=== PATIENT | male | born 1990 | race Caucasian/White ===

== ENCOUNTER 2017-12-16 10:58 | Outpatient (CLI) | payer MEDICAID, SELFPAY | END 2017-12-16 11:18 | PROVIDERS: PCP Family Medicine; Visit Provider Neuromusculoskeletal Medicine, Sports Medicine | DX: R07.89 Other chest pain (principal) | CPT/HCPCS: 93005; 93010 ==

== ENCOUNTER 2018-07-26 17:01 | Outpatient (REF) | payer MEDICAID, SELFPAY ==
[2018-07-26 21:08] LABS: Abs Immature Grans 0.04 k/cumm (0.0-0.09); Absolute Basophil Count 0.04 k/cumm (0.0-0.2); Absolute Eosinophil Count 0.19 k/cumm (0.0-0.7); Absolute Lymphocyte Count 3.26 k/cumm (1.2-3.4); Absolute Monocyte Count 0.97 k/cumm (0.11-0.7); Absolute Neutrophil Count 5.87 k/cumm (1.2-6.7); Basophils % 0.4; Eosinophils % 1.8; HCT 45.1 % (40.0-50.0); HGB 15.4 g/dL (13.5-17.5); Immature Grans % 0.4; Lymphocytes % 31.4; Mean Corp. HGB Concentration 34.1 g/dL (32.0-36.0); Mean Corpuscular Hemoglobin 29.2 pg (27.0-33.0); Mean Corpuscular Volume 85.4 fL (80-95); Mean Platelet Volume 10.2 fL (8.0-11.0); Monocytes % 9.4; Neutrophils % 56.6; Platelet Count 261 x1000/uL (130-400); RBC 5.28 m/cumm (4.50-6.00); RBC Distribution Width 12.3 % (11.8-14.1); White Blood Cell Count 10.37 k/cumm (4.4-10.8)
[2018-07-26 21:43] LABS: ALT 50 U/L (12-78); AST 18 U/L (15-37); Albumin 2.9 g/dL (3.4-5.0); Alkaline Phosphatase 64 U/L (46-116); Anion Gap 9.9 mmol/L (3-11); BUN 10 mg/dL (7-18); Bilirubin, Total 0.3 mg/dL (0.2-1.0); CO2 27.1 mmol/L (21.0-32.0); CREATININE 0.94 mg/dL (0.70-1.30); Calcium 8.9 mg/dL (8.5-10.1); Chloride 103 mmol/L (98-107); Glucose 104 mg/dL (70-100); Potassium 4.3 mmol/L (3.5-5.1); Sodium 140 mmol/L (136-145); TSH 1.38 uIU/mL (0.358-3.74)
[2018-07-26 21:45] LABS: Hemoglobin A1C 5.6 % (4.5-6.2)
[2018-07-26 21:57] LABS: HDL Cholesterol 19 mg/dL (40-60); LDL CHOLESTEROL 105 mg/dL (<100)
== END 2018-07-26 17:21 ==
LOC: NCHCN 17:01
PROVIDERS: PCP Family Medicine; Visit Provider Nurse Practitioner Family
DX: R55 Syncope and collapse (principal)
CPT/HCPCS: 80053; 83721; 83036; 83718; 84443; 85025

== ENCOUNTER 2019-03-01 14:40 | Emergency (ER) | payer OTHER, SELFPAY ==
[2019-03-01 14:44] VITALS: BP 173/111; PULSE 102; RESP 16; TEMP 36.2; O2SAT 97
--- NOTE | 2019-03-01 14:54 | ED.GENADUL_ITS ---
Discharge Plan Disposition Patient Disposition: HOME Condition: Stable Discharge Details Chief Complaint: EyeProblem Clinical Impression: Abrasion, corneal Primary Care Provider: Katarzyna Head V ED Provider: Patrick Espinosa Home Meds and New Rx's Prescriptions: New erythromycin 5 mg/gram (0.5 %) ointment 0.5 inch OP TID 7 Days Qty: 3.5 RF: 0 Continued ibuprofen 600 MG tablet 600 mg PO TID PRN PRNQty: 30 RF: 0 Discharge Instructions Instructions: Corneal Abrasion (ED) Additional Instructions: if you aren't better by Wednesday follow up with [facility] [phone] if you are having severe worsening pain or fevers return to the emergency department Medical Decision Making 29 yo male comes in with chief complaint of left eye pain. 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 He flushed it out with saline at work. Denies fevers, chills, or other trauma. He has injected left conjunctiva, perrl, no periorbital swelling, iop 10 in right eye, 12 in left eye and 20/25 in left eye and 20/20 in right eye. Had immediate relief of pain with tetracaine. no foreign body on surface of eye, did have small 1mm piece of fiberglass when upper left eyelid flipped and removed with cotton swab. After flourescein placement noted 2 small 1mm corneal abrasions on the conjunctiva at the 3oclock and 9 oclock positions. will start on erythromycin and advised if not better by Wednesday to f/u with [facility] and return to the ED if worsening Differential Diagnosis Differential Diagnosis: corneal abrasion, conjunctivitis HPI General Mode of arrival: ambulatory . Date/Time Provider Initiated Documentation: 03/01/19 14:42 . Limitations to Documentation: no limitations . Information obtained by: patient . History of Present Illness 29 year old M presents to the emergency department with the chief complaint of left eye pain, described as moderate, Patient started experiencing this hour(s) (1) and it has been constant. No relieving factors improve symptom(s), No exacerbating factors reported . Related Data Home Medications Medication Instructions Recorded Confirmed ibuprofen 600 mg PO TID PRN PRN #30 tab 07/23/17 11/27/19 erythromycin 0.5 inch OP TID 7 Days #3.5 gm 03/01/19 Previous Rx's Medication Instructions Recorded ibuprofen 600 mg PO TID PRN PRN #30 tab 10/25/16 erythromycin 0.5 inch OP TID 7 Days #3.5 gm 03/01/19 Allergies Allergy/AdvReac Type Severity Reaction Status Date / Time No Known Allergies Allergy Unverified 03/01/19 14:51 General Stated Complaint: EyeProblem CLIF: 4 Review of Systems All systems reviewed & are unremarkable except as noted in HPI and below Constitutional Constitutional: Denies chills, Denies fever(s) and Denies weakness Cardiovascular Cardiovascular: Denies chest pain and Denies dyspnea Respiratory Respiratory: Denies dyspnea Gastrointestinal Gastrointestinal: Denies abdominal pain, Denies nausea and Denies vomiting Musculoskeletal Musculoskeletal: Denies joint swelling Neurologic Neurologic: Denies weakness Psychiatric Psychiatric: Denies depression [facility] Medical History (Updated 03/27/18 @ 15:24 by Laura Cody MD) Cardiac hypertrophy (Chronic) Essential hypertension (Chronic) Migraines (Chronic) Severe obesity (BMI 35.0-39.9) with comorbidity (Chronic) Social History Smoking/Tobacco Use Status: Current every day Tobacco Type: cigarettes Drug use: Occasionally Substance use type: marijuana Household members: significant other Do you feel safe at home: Yes Do you feel safe in your relationship?: Yes Exam Const General: no acute distress Orientation: alert HENMT Head: normal to inspection Ears: external ears normal General nose exam: external nose normal Mouth: moist mucous membranes Eyes Alignment and Position: alignment normal Pupils: PERRL Neck Neck: normal visual inspection Resp Effort & Inspection: normal respiratory effort and able to speak in complete sentences Cardio Rate: regular rate Skin General skin exam: no rashes or lesions noted Neuro General: alert and oriented x3 Extrem General: normal to inspection Psych Mental Status: mental status grossly normal Course Vital Signs Vital signs: Vital Signs Temperature 36.2 C L 03/01/19 14:44 Pulse 102 H 03/01/19 14:44 Respiratory Rate 16 03/01/19 14:44 Blood Pressure 173/111 H 03/01/19 14:44 Pulse Oximetry 97 03/01/19 14:44 Temperature 36.2 C L 03/01/19 14:44 Temperature Source Temporal Artery Scan 03/01/19 14:44 Pulse 102 H 03/01/19 14:44 Respiratory Rate 16 03/01/19 14:44 Respiratory Effort Non-Labored 03/01/19 14:49 Blood Pressure 173/111 H 03/01/19 14:44 Blood Pressure Position Sitting 03/01/19 14:44 Pulse Oximetry 97 03/01/19 14:44 Oxygen Delivery Method Room Air 03/01/19 14:44 Oxygen Flow Rate 0 03/01/19 14:44 Pain Level 2 03/01/19 14:44
[2019-03-01] MEDS: Balanced Salt Solution 15 ML BTL OP (14:57)
[2019-03-01] MEDS: Fluorescein STRIPS 100/BOX 1 MG (14:58)
[2019-03-01] MEDS: Tetracaine 0.5% 4 ML BTL (14:58)
[2019-03-01 17:49] VITALS: PULSE 102; RESP 16; TEMP 36.2; O2SAT 97
== END 2019-03-01 15:23 | disposition home or self-care (01) ==
PROVIDERS: Emergency Provider Emergency Medicine; PCP Family Medicine
DX: S05.02XA Injury of conjunctiva and corneal abrasion without foreign body, left eye, initial encounter (principal); X58.XXXA Exposure to other specified factors, initial encounter
CPT/HCPCS: 99283

== ENCOUNTER 2019-04-17 10:01 | Emergency (ER) | payer MEDICAID, SELFPAY ==
[2019-04-17] VITALS (45 sets, daily range): BP systolic 143–205; BP diastolic 77–137; PULSE 62–117; RESP 11–34; TEMP 36.2; O2SAT 89–98
[2019-04-17] MEDS: Aspirin 81 MG CHEW 324 MG CH (10:18)
[2019-04-17] MEDS: LORazepam 2 MG/ML VIAL (10:24)
--- NOTE | 2019-04-17 10:24 | ED.GENADUL_ITS ---
Discharge Plan Disposition Patient Disposition: AGAINST MEDICAL ADVICE Condition: Stable Discharge Details Chief Complaint: Chest Pain Clinical Impression: Chest pain, Hypertension Primary Care Provider: Katarzyna Head V ED Provider: Helene Kimble Home Meds and New Rx's Prescriptions: Continued famotidine [Pepcid] 20 mg Tablet 20 mg PO BID RF: 0 hydrochlorothiazide 25 mg Tablet 25 mg PO DAILY RF: 0 ibuprofen 600 MG tablet 600 mg PO TID PRN PRNQty: 30 RF: 0 Discharge Instructions Instructions: Chest Pain (ED), Hypertension (ED) Additional Instructions: You have elected to leave AGAINST MEDICAL ADVICE, the risks of doing so are or permanent disability. You may return to the emergency department anytime if you change your mind. Please return immediately to the emergency department if you develop any new or worsening symptoms, if your condition does not improve as expected, or if you become otherwise concerned. It is extremely important that you call soon as possible to make an appointment to be seen in follow-up for this visit by your primary care doctor and product coordinator as we discussed. 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 On exam Pt appears anxious but well and non-toxic, no diaphoresis, normal cardiopulmonary exam. Hypertensive. Concern for ACS, PE, hypertensive emergency, other. Exam/hx not c/w sepsis, acute intra-abdominal process, acute intracranial emergency. Plan for EKG, screening labs, CT chest for r/o PE, SLNG, low dose ativan. Pt reports chest tightness improved with SLNG, plan for NG gtt. BP improving, will hold other anti-hypertensives. EKG non-diagnostic. Pt denying continued chest pain, reporting headache after NG gtt started, plan to stop gtt, give morphine, reassess. No further chest pain after NG stopped, headache resolved. Labs reviewed, trop negative. CT negative. Plan for repeat trop and EKG, will continue to monitor. Repeat trop negative. No further chest pain in ED. Rpt EKG unchanged. Pt is high risk given history, HTN in ED. I recommended Pt be admitted for further eval and treatment. Pt refuses or further treatment at this time. I had a lengthy discussion with the Pt and his family re: risks of leaving AMA including , permanent disability, and Pt verbalized understanding of the risks and continued to refuse further eval or treatment. Pt has decision-making capacity, has capacity for informed refusal. I discussed plan for outpt f/u with cardiology and PCP, and also that Pt may RTED at any time should he change his mind. I called Dr. Delaney of cardiology and discussed Pt presentation, results, and refusal to be admitted, Dr. Delaney will see Pt as outpt. I had a lengthy discussion with Patient regarding return to emergency department precautions, home care, and importance of outpatient follow-up. Pt verbalizes understanding of the plan and is amenable. Patient discharged to home with clear plan for outpatient follow-up. All questions were answered. Disposition decision was made weighing the risks and benefits of hospitalization versus outpatient treatment, the risk for further decompensation, and the patient's wishes. Medical Records Medical records reviewed: Yes I reviewed the patient's medical records. Imaging Data Radiologic Study: Attestation: I personally reviewed and interpreted this imaging study as follows: Radiologist's impression: EXAM: CT CHEST PE CTA CLINICAL HISTORY: chest pain. TECHNIQUE: Imaging Protocol: Axial CT angiography was performed with multi- slice acquisition and multi-planar and/or 3D reconstructions. CONTRAST MATERIAL: Intravenous: Omnipaque 350 Contrast volume:90 mL COMPARISON: No exams were available for comparison FINDINGS: Pulmonary Arteries: No evidence of filling defect to suggest pulmonary emboli. Tracheobronchial tree: Patent where visualized. Mediastinum and Deb: No dominant adenopathy or fluid collection. Pulmonary parenchyma: No consolidation or dominant measurable mass. No architectural distortion. Pleura: No effusion or pneumothorax. Heart: The heart is not dilated. No coronary artery calcifications are seen. No significant pericardial effusion or right heart strain is present. Aorta: No evidence of thoracic aortic aneurysm or dissection. Upper abdomen: Unremarkable. Bones: Normal. Chest wall: Gynecomastia. IMPRESSION: No evidence of pulmonary embolus, thoracic aortic dissection or aneurysm. Lab Data Lab results reviewed: Yes I reviewed the patient's lab results. Labs: Laboratory Tests Range/Units 04/17/19 04/17/19 04/17/19 10:10 10:10 10:10 WBC (4.4-10.8) k/cumm 11.58 H RBC (4.50-6.00) m/cumm 5.70 Hgb (13.5-17.5) g/dL 16.7 Hct (40.0-50.0) % 47.0 MCV (80-95) fL 82.5 MCH (27.0-33.0) pg 29.3 MCHC (32.0-36.0) g/dL 35.5 RDW (11.8-14.1) % 12.2 Plt Count (130-400) x1000/uL 316 MPV (8.0-11.0) fL 9.7 Immature Gran % % 0.3 Neutrophils % 59.3 Lymphocytes % 30.2 Monocytes % 7.3 Eosinophils % 2.5 Basophils % 0.4 Absolute Neutrophils (1.2-6.7) k/cumm 6.87 H Absolute Lymphocytes (1.2-3.4) k/cumm 3.50 H Absolute Monocytes (0.11-0.7) k/cumm 0.85 H Absolute Eosinophils (0.0-0.7) k/cumm 0.29 Absolute Basophils (0.0-0.2) k/cumm 0.05 D-Dimer (<500) ng/mlFEU 168 Sodium (136-145) mmol/L 141 Potassium (3.5-5.1) mmol/L 4.0 Chloride (98-107) mmol/L 103 Carbon Dioxide (21.0-32.0) mmol/L 27.4 Anion Gap (3-11) mmol/L 10.6 BUN (7-18) mg/dL 14 Creatinine (0.70-1.30) mg/dL 0.99 Estimated GFR/1.73 m2 (mL/min/1.73m2) >= 60.00 Glucose (74-106) mg/dL 102 Calcium (8.5-10.1) mg/dL 9.4 Magnesium (1.8-2.4) mg/dL 1.7 L Total Bilirubin (0.2-1.0) mg/dL 0.3 AST (15-37) U/L 20 ALT (16-63) U/L 41 Alkaline Phosphatase (46-116) U/L 64 Troponin I (<0.06) ng/Ml < 0.05 NT-Pro-B Natriuret Pep (<300) pg/mL 21 Total Protein (6.4-8.2) g/dL 7.8 Albumin (3.4-5.0) g/dL 3.8 Range/Units 04/17/19 13:20 WBC (4.4-10.8) k/cumm RBC (4.50-6.00) m/cumm Hgb (13.5-17.5) g/dL Hct (40.0-50.0) % MCV (80-95) fL MCH (27.0-33.0) pg MCHC (32.0-36.0) g/dL RDW (11.8-14.1) % Plt Count (130-400) x1000/uL MPV (8.0-11.0) fL Immature Gran % % Neutrophils % Lymphocytes % Monocytes % Eosinophils % Basophils % Absolute Neutrophils (1.2-6.7) k/cumm Absolute Lymphocytes (1.2-3.4) k/cumm Absolute Monocytes (0.11-0.7) k/cumm Absolute Eosinophils (0.0-0.7) k/cumm Absolute Basophils (0.0-0.2) k/cumm D-Dimer (<500) ng/mlFEU Sodium (136-145) mmol/L Potassium (3.5-5.1) mmol/L Chloride (98-107) mmol/L Carbon Dioxide (21.0-32.0) mmol/L Anion Gap (3-11) mmol/L BUN (7-18) mg/dL Creatinine (0.70-1.30) mg/dL Estimated GFR/1.73 m2 (mL/min/1.73m2) Glucose (74-106) mg/dL Calcium (8.5-10.1) mg/dL Magnesium (1.8-2.4) mg/dL Total Bilirubin (0.2-1.0) mg/dL AST (15-37) U/L ALT (16-63) U/L Alkaline Phosphatase (46-116) U/L Troponin I (<0.06) ng/Ml < 0.05 NT-Pro-B Natriuret Pep (<300) pg/mL Total Protein (6.4-8.2) g/dL Albumin (3.4-5.0) g/dL ECG Data Attestation: I personally reviewed and interpreted this ECG (s) as follows: Interpretation: EKG shows sinus rhythm at 95, normal axis, no STEMI, nondiagnostic EKG Repeat EKG 14: 05 shows sinus rhythm at 75, normal axis, no ischemic ST changes from prior, nondiagnostic EKG HPI General Mode of arrival: ambulatory . Date/Time Provider Initiated Documentation: 04/17/19 10:03 . Limitations to Documentation: no limitations . Information obtained by: patient and family . HPI Narrative: Jayme James is a 29 y/o man with h/o HTN, cardiomyopathy presenting to the emergency department with chest pain. Pt reports that he was at work this morning when he developed chest pain. 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 He states that he developed tightness across his chest, non-radiating, in addition to SOB and feeling sweaty. Pt reports that he had a similar episode about a year for which he was seen in the ED at [facility] and discharged to home from the ED after being told he was having a panic attack. Pt reports that he has a history of cardiomyopathy, along with his sister who he reports suddenly of her cardiac disease in her late 20s. Pt reports that he has never had a cardiac catheterization, is unsure if he has had a stress test before. He reports that he has seen a product coordinator in the past, but he was told that his problem was from being overweight and he didn't to see the product coordinator anymore unless he lost weight. Pt reports that his chest tightness is unchanged from onset. Non-exertional, non-pleuritic, no other known inciting factors. Currently 11/12. No other pain, no fevers, no cough, no vomiting, no diarrhea, no numbness, no weakness, no rash. Pt reports that prior to onset of pain he was well and in his usual state of health this morning. Has been eating and drinking as usual. No recent illness, no recent tr eric. Denies recreational drug use. Pt states that he wants to be evaluated and treated in the ED, but he will refuse admission to the hospital as he wants to stay in his own home tonight and does not like hospitals. Related Data Home Medications Medication Instructions Recorded Confirmed ibuprofen 600 mg PO TID PRN PRN #30 tab 10/25/16 04/17/19 famotidine [Pepcid] 20 mg PO BID 04/17/19 04/17/19 hydrochlorothiazide 25 mg PO DAILY 04/17/19 04/17/19 Previous Rx's Medication Instructions Recorded ibuprofen 600 mg PO TID PRN PRN #30 tab 10/25/16 Allergies Allergy/AdvReac Type Severity Reaction Status Date / Time amlodipine Allergy Unverified 04/17/19 13:30 amoxicillin Allergy Unverified 04/17/19 13:30 General Stated Complaint: Chest Pain CLIF: 2 Review of Systems Narrative: Constitutional: denies fevers Eyes: denies eye pain ENT: denies ear pain, dental pain, sore throat Cardiovascular: denies edema, reports chest pain Respiratory: denies cough, reports SOB GI: denies abdominal pain, vomiting, diarrhea : denies flank pain MSK: denies back pain, neck pain, arthralgias, myalgias Skin: denies rash Neuro: denies headaches, numbness, weakness PFSH Medical History Cardiac hypertrophy (Chronic) Essential hypertension (Chronic) Migraines (Chronic) Severe obesity (BMI 35.0-39.9) with comorbidity (Chronic) Social History Smoking/Tobacco Use Status: Current every day Tobacco Type: cigarettes and smokeless tobacco Alcohol Intake: never Drug use: Occasionally Substance use type: marijuana Household members: significant other Do you feel safe at home: Yes Do you feel safe in your relationship?: Yes Exam Narrative Exam Narrative: Constitutional: well and [id number], pleasant, conversing normally, appears anxious HENT: head atraumatic/normocephalic/normal inspection, mucous membranes moist Eyes: conjunctiva normal, sclera normal, pupils 3mm b/l Neck: no stridor, normal ROM, trachea midline Chest: normal inspection, no TTP Resp: normal work of breathing, LCTAB Cardio: normal rate, normal rhythm, no murmur appreciated GI: abdomen soft, non-tender, non-distended Back: normal inspection, no rash Skin: warm, dry, normal color, no rash Neuro: alert, not altered, grossly non-focal, normal tone Ext: no edema, no posterior calf TTP Psych: normal mood, normal affect, normal behavior Course Vital Signs Vital signs: Vital Signs Temperature 36.2 C L 04/17/19 10:05 Pulse 92 H 04/17/19 10:05 Respiratory Rate 14 04/17/19 10:05 Blood Pressure 205/136 H 04/17/19 10:05 Pulse Oximetry 95 04/17/19 10:05 Temperature 36.2 C L 04/17/19 10:05 Temperature Source Temporal Artery Scan 04/17/19 10:05 Pulse 92 H 04/17/19 10:05 Respiratory Rate 14 04/17/19 10:05 Respiratory Effort Non-Labored 04/17/19 10:08 Blood Pressure 205/136 H 04/17/19 10:05 Blood Pressure Position Supine 04/17/19 10:05 Pulse Oximetry 95 04/17/19 10:05 Oxygen Delivery Method Room Air 04/17/19 10:05 Oxygen Flow Rate 0 04/17/19 10:05 Pain Level 8 04/17/19 10:14
[2019-04-17 10:26] LABS: Abs Immature Grans 0.03 k/cumm (0.0-0.09); Absolute Basophil Count 0.05 k/cumm (0.0-0.2); Absolute Eosinophil Count 0.29 k/cumm (0.0-0.7); Absolute Monocyte Count 0.85 k/cumm (0.11-0.7); Absolute Neutrophil Count 6.87 k/cumm (1.2-6.7); Basophils % 0.4; Eosinophils % 2.5; HGB 16.7 g/dL (13.5-17.5); Immature Grans % 0.3 %; Lymphocytes % 30.2; Mean Corp. HGB Concentration 35.5 g/dL (32.0-36.0); Mean Corpuscular Hemoglobin 29.3 pg (27.0-33.0); Mean Corpuscular Volume 82.5 fL (80-95); Mean Platelet Volume 9.7 fL (8.0-11.0); Monocytes % 7.3; Neutrophils % 59.3; Platelet Count 316 x1000/uL (130-400); RBC Distribution Width 12.2 % (11.8-14.1); White Blood Cell Count 11.58 k/cumm (4.4-10.8)
[2019-04-17 10:45] LABS: ALT 41 U/L (16-63); AST 20 U/L (15-37); Albumin 3.8 g/dL (3.4-5.0); Alkaline Phosphatase 64 U/L (46-116); Anion Gap 10.6 mmol/L (3-11); BUN 14 mg/dL (7-18); Bilirubin, Total 0.3 mg/dL (0.2-1.0); CO2 27.4 mmol/L (21.0-32.0); CREATININE 0.99 mg/dL (0.70-1.30); Calcium 9.4 mg/dL (8.5-10.1); Chloride 103 mmol/L (98-107); Glucose 102 mg/dL (74-106); Magnesium 1.7 mg/dL (1.8-2.4); NT-proBNP 21 pg/mL (<300); Sodium 141 mmol/L (136-145); Total Protein 7.8 g/dL (6.4-8.2)
[2019-04-17 10:49] LABS: Troponin I < 0.05 ng/Ml (<0.06)
--- NOTE | 2019-04-17 10:49 | DI.CT_ITS ---
EXAM: CT CHEST PE CTA CLINICAL HISTORY: chest pain. TECHNIQUE: Imaging Protocol: Axial CT angiography was performed with multi-slice acquisition and mu lti-planar and/or 3D reconstructions. CONTRAST MATERIAL: Intravenous: Omnipaque 350 Contrast volume:90 mL COMPARISON: No exams were available for comparison FINDINGS: Pulmonary Arteries: No evidence of filling defect to suggest pulmonary emboli. Tracheobronchial tree: Patent where visualized. Mediastinum and Deb: No dominant adenopathy or fluid collection. Pulmonary parenchyma: No consolidation or dominant measurable mass. No architectural distortion. Pleura: No effusion or pneumothorax. Heart: The heart is not dilated. No coronary artery calcifications are seen. No significant pericardi al effusion or right heart strain is present. Aorta: No evidence of thoracic aortic aneurysm or dissection. Upper abdomen: Unremarkable. Bones: Normal. Chest wall: Gynecomastia. IMPRESSION: No evidence of pulmonary embolus, thoracic aortic dissection or aneurysm. The findings were discussed with the emergency department on the date of the examination. DATA REPOSITORY: All CT scans at this facility are submitted to the National Radiology Data Registry (NRDR) Dose Index Registry (DIR) with the [employer] (A[employer]). RADIATION OPTIMIZATION: All CT scans at this facility use at least one of these dose optimization te chniques: automated exposure control; mA and/or kV adjustment per patient size (includes targeted exa ms where dose is matched to clinical indication); or iterative reconstruction.
[2019-04-17 10:58] LABS: D-Dimer 168 ng/mlFEU (<500)
[2019-04-17] MEDS: Omnipaque 350 MG/ML 100 ML BTL IJ (11:12)
[2019-04-17 13:45] LABS: Troponin I < 0.05 ng/Ml (<0.06)
[2019-04-17] MEDS: Acetaminophen 500 MG TAB (14:45)
--- NOTE | 2019-04-17 17:55 | NUR.NOTE ---
referral faxed to [facility].Nursing Note:
== END 2019-04-17 15:47 | disposition left against medical advice (07) ==
PROVIDERS: Emergency Provider Student in an Organized Health Care Education/Training Program; PCP Family Medicine
DX: R07.89 Other chest pain (principal); I10 Essential (primary) hypertension; I42.9 Cardiomyopathy, unspecified; Z53.29 Procedure and treatment not carried out because of patient's decision for other reasons; F17.210 Nicotine dependence, cigarettes, uncomplicated
CPT/HCPCS: 36415; 71275; 80053; 93005; 96375; 99285; 83735; 83880; 84484; 85025; 85379; 93010; J2060; J3490

== ENCOUNTER 2019-05-25 08:50 | Outpatient (CLI) | payer MEDICAID, SELFPAY | END 2019-05-25 09:10 | PROVIDERS: PCP Family Medicine; Visit Provider Internal Medicine Cardiovascular Disease | DX: I10 Essential (primary) hypertension (principal); I38 Endocarditis, valve unspecified | CPT/HCPCS: 93005; 93010 ==

== ENCOUNTER 2020-02-20 10:24 | Outpatient (REF) | payer MEDICAID, SELFPAY ==
[2020-02-24 03:17] LABS: Patient Race White; SARS-CoV-2 RNA Undetected (Undetected); SARS-CoV-2 Specimen Source Nasal
== END 2020-02-20 10:44 ==
LOC: NCHCN 10:24
PROVIDERS: PCP Family Medicine; Visit Provider Family Medicine
DX: Z20.828 Contact with and (suspected) exposure to other viral communicable diseases (principal)
CPT/HCPCS: U0003

== ENCOUNTER 2020-11-21 17:03 | Outpatient (REF) | payer MEDICAID, SELFPAY ==
[2020-11-21 19:14] LABS: Abs Immature Grans 0.04 10^3/uL (0.0-0.06); Absolute Basophil Count 0.06 10^3/uL (0.0-0.2); Absolute Eosinophil Count 0.22 10^3/uL (0.0-0.7); Absolute Lymphocyte Count 4.31 10^3/uL (1.2-3.4); Absolute Monocyte Count 0.69 10^3/uL (0.1-0.8); Absolute Neutrophil Count 5.43 10^3/uL (1.2-6.7); Basophils % 0.6; HCT 40.6 % (40.0-50.0); HGB 13.5 g/dL (13.5-17.5); Immature Grans % 0.4; Lymphocytes % 40.1; MCH 29.4 pg (27.0-33.0); MCHC 33.3 % (32.0-36.0); MCV 88.5 fL (80-95); MPV 10.1 fL (8.0-11.0); Monocytes % 6.4; Neutrophils % 50.5; Nucleated RBC 0 %; Platelet Count 284 10^3/uL (130-400); RBC 4.59 10^6/uL (4.36-5.78); WBC 10.75 10^3/uL (4.4-10.8)
[2020-11-21 19:32] LABS: Anion Gap 5.7 mmol/L (3-11); BUN 18 mg/dL (7-18); CO2 32.3 mmol/L (21.0-32.0); CREATININE 1.1 mg/dL (0.70-1.30); Calcium 9.3 mg/dL (8.5-10.1); Chloride 105 mmol/L (98-107); Glucose 70 mg/dL (74-106); Potassium 4.4 mmol/L (3.5-5.1); Sodium 143 mmol/L (136-145)
== END 2020-11-21 17:04 | disposition home or self-care (01) ==
LOC: NCHCN 17:03
PROVIDERS: PCP Family Medicine; Visit Provider Nurse Practitioner Family
DX: R19.7 Diarrhea, unspecified (principal)
CPT/HCPCS: 80048; 85025

== ENCOUNTER 2021-01-08 15:13 | Outpatient (REF) | payer MEDICAID, SELFPAY ==
[2021-01-10 12:09] LABS: COVID-19 RT-PCR UVMMC Result Negative (Negative)
== END 2021-01-08 15:14 | disposition home or self-care (01) ==
LOC: LBN 15:13
PROVIDERS: PCP Family Medicine; Visit Provider Physician Assistant Medical
DX: Z20.822 Contact with and (suspected) exposure to COVID-19 (principal)
CPT/HCPCS: U0003

== ENCOUNTER 2021-02-17 18:45 | Emergency (ER) | payer MEDICAID, SELFPAY ==
[2021-02-17 18:54] VITALS: BP 167/94; PULSE 71; RESP 18; TEMP 36.6; O2SAT 97
--- NOTE | 2021-02-17 19:02 | ED.GENADUL_ITS ---
Discharge Plan Disposition Patient Disposition: HOME Condition: Stable Discharge Details Clinical Impression: Tooth ache Primary Care Provider: Katarzyna Head V ED Provider: Pearl Enriquez Home Meds and New Rx's Prescriptions: No Action losartan 50 mg tablet 50 mg PO DAILY RF: 0 diclofenac sodium 75 mg tablet,delayed release (DR/EC) 75 mg PO BID PRNRF: 0 cyclobenzaprine 10 mg tablet 10 mg PO TID PRNRF: 0 diltiazem HCl [Taztia XT] 120 mg capsule,extended release 24 hr 120 mg PO DAILY Qty: 90 RF: 8 famotidine [Pepcid] 20 mg Tablet 20 mg PO BID RF: 0 hydrochlorothiazide 25 mg Tablet 25 mg PO DAILY RF: 0 ibuprofen 600 MG tablet 600 mg PO TID PRN PRNQty: 30 RF: 0 Discharge Instructions Instructions: Clindamycin (By mouth), Toothache (ED) Additional Instructions: Take the medication as directed. You were given 450 mg by mouth here in Department and 4 doses to go home with. Take another dose before your dentist appointment in the am. Take with food. Use the Hurricaine gel for pain. Please take Tylenol or Ibuprofen with food every 4-6 hours as needed for pain and swelling. Referrals: Katarzyna Head MD [Primary Care Provider] - Return if symptoms worsen Medical Decision Making 31-year-old male presents to the ER with history of right lower dental pain. He is scheduled for extraction tomorrow morning. He is requesting a dose of IV antibiotics prior appointment. After further review to give clindamycin orally 450 mg p.o. here now and instruct patient to take another dose in the a.m. prior to his appointment. According to my sources IV clindamycin should be given 30-60 min prior to procedure if needed. Due to the bioavailability will give the oral dose instead of the IV dose. I did discuss with patient who verbalized understanding is in agreement with plan. Patient given 450 mg PO Clindamycin her and to go dose of 12 tablets. This text was generated using [employer] system, please disregard any oddities of phrase or misspellings. HPI General Mode of arrival: ambulatory . Date/Time Provider Initiated Documentation: 02/17/21 19:01 . Limitations to Documentation: no limitations . Information obtained by: patient, RN notes reviewed and old records reviewed . HPI Narrative: 31-year-old male presents to the ER with chief complaint of right lower molar dental pain. He reports he has been on clindamycin for the last 10 days and took his last dose on Wednesday. He reports that he had increased tooth pain today. He does have an appointment for a tooth extraction tomorrow at the orthopedic dentist office. He was instructed to present for a dose of IV antibiotic prior to his appointment tomorrow. He has been taking Tylenol and ibuprofen for pain last dose was gram of Tylenol and a gram of Profen approximately 1 hour prior to arrival. He also reports continued treatment of Orajel. He denied any other associated symptoms no drainage, no problems swallowing, no fever chill trouble breathing. On initial exam there is no evidence for abscess no fluctuance. Does have a broken second molar noted. Related Data Home Medications Medication Instructions Recorded Confirmed ibuprofen 600 mg PO TID PRN PRN #30 tab 10/25/16 02/17/21 famotidine [Pepcid] 20 mg PO BID 04/17/19 02/17/21 hydrochlorothiazide 25 mg PO DAILY 04/17/19 02/17/21 losartan 50 mg tablet 50 mg PO DAILY 05/25/19 02/17/21 cyclobenzaprine 10 mg tablet 10 mg PO TID PRN 06/13/19 02/17/21 diclofenac sodium 75 mg 75 mg PO BID PRN 06/13/19 02/17/21 tablet,delayed release diltiazem HCl 120 mg capsule,24 120 mg PO DAILY #90 cap 08/07/19 02/17/21 hr,extended release Previous Rx's Medication Instructions Recorded ibuprofen 600 mg PO TID PRN PRN #30 tab 10/25/16 diltiazem HCl 120 mg capsule,24 120 mg PO DAILY #90 cap 08/07/19 hr,extended release Allergies Allergy/AdvReac Type Severity Reaction Status Date / Time amlodipine Allergy Unverified 02/17/21 19:01 amoxicillin Allergy Unverified 02/17/21 19:01 General Stated Complaint: DentalOral CLIF: 3 Review of Systems All systems reviewed & are unremarkable except as noted in HPI and below ENT Ears, Nose, Mouth, and Throat: Reports as per HPI, Reports dental pain, Denies otalgia, Denies neck mass and Denies neck pain Musculoskeletal Musculoskeletal: Denies neck pain PFS Active Problem List (Updated 02/17/21 @ 19:21 by Pearl Enriquez) Tooth ache (Acute) LVH (left ventricular hypertrophy) (Acute) Cardiac hypertrophy (Chronic) Severe obesity (BMI 35.0-39.9) with comorbidity (Chronic) Migraines (Chronic) Essential hypertension (Chronic) Family History Sister , [place] vs. sudden cardiac at age 28 Sudden cardiac Maternal Grandmother , age 65 CAD (coronary artery disease) Maternal Grandfather CAD (coronary artery disease) Paternal Grandmother , age 64 Stroke Paternal Grandfather CAD (coronary artery disease) Stroke Mother Age: 52 No problems noted. Father Age: 55 No problems noted. Social History Smoking/Tobacco Use Status: Former Tobacco Use Smoking risk assessment performed?: Yes Alcohol Intake: never Drug use: Daily Substance use type: marijuana Household members: significant other What type of physical activity do you participate in: none Do you feel safe at home: Yes Do you feel safe in your relationship?: Yes Exam Const General: cooperative, healthy appearing, comfortable, no acute distress, well developed and well groomed Nutritional Appearance: average body habitus and well nourished Orientation: alert, awake and oriented x3 HENMT Mouth: no trismus Teeth and gingiva: caries and fair dentition Teeth image: 1. Pain, broken tooth, no absces or area of fluctuance. Neck Neck: full ROM, trachea midline, supple, no anterior neck swelling, no lymphadenopathy noted and nontender Resp Effort & Inspection: normal respiratory effort, able to speak in complete sentences, normal respiratory pattern, no audible wheezes, no cough and not labored Auscultation: clear to auscultation bilaterally Cardio Rate: regular rate Rhythm: regular rhythm Heart Sounds: S1 normal and S2 normal Course Vital Signs Vital signs: Vital Signs Temperature 36.6 C 02/17/21 18:54 Pulse 71 02/17/21 18:54 Respiratory Rate 18 02/17/21 18:54 Blood Pressure 167/94 H 02/17/21 18:54 Pulse Oximetry 97 02/17/21 18:54 Temperature 36.6 C 02/17/21 18:54 Temperature Source Temporal Artery Scan 02/17/21 18:54 Pulse 71 02/17/21 18:54 Respiratory Rate 18 02/17/21 18:54 Blood Pressure 167/94 H 02/17/21 18:54 Blood Pressure Position Sitting 02/17/21 18:54 Pulse Oximetry 97 02/17/21 18:54 Oxygen Delivery Method Room Air 02/17/21 18:54 Oxygen Flow Rate 0 02/17/21 18:54 Pain Level 8 02/17/21 18:54
[2021-02-17] MEDS: Clindamycin 150 MG CAP 450 MG PO (19:30)
[2021-02-17] MEDS: Clindamycin 150 MG CAP, 12 CAPS/BTL 450 MG PO (19:31)
[2021-02-17] MEDS: Benzocaine 20% Gel 30 GM JAR MM (19:31)
== END 2021-02-17 19:42 | disposition home or self-care (01) ==
PROVIDERS: Emergency Provider Registered Nurse Emergency; PCP Family Medicine
DX: K08.89 Other specified disorders of teeth and supporting structures (principal)
CPT/HCPCS: 99283

== ENCOUNTER 2021-06-20 20:36 | Outpatient (CLI) | payer MEDICAID, SELFPAY ==
--- NOTE | 2021-06-20 | DI.RAD_ITS ---
Exam(s) XR LUMBAR SPINE COMPLETE EXAM: XR LUMBAR SPINE COMPLETE CLINICAL HISTORY: CHRONIC LOW BACK PAIN, M54.59 TECHNIQUE: COMPARISON: CR LUMBAR SPINE COMPLETE from 10/25/2016 FINDINGS: Five views were obtained. The SI joints appear intact. There is some loss of height of intervertebr al disc space at the L4-5 level, otherwise intervertebral disc spaces are well maintained. There is no evidence of acute fracture or dislocation. There is no evidence of spondylolysis or spondylolisth esis. 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 No other significant findings. RADIATION DOSE DELIVERED: Total DLP
== END 2021-06-20 20:56 ==
PROVIDERS: PCP Family Medicine; Visit Provider Nurse Practitioner Family
DX: M54.59 Other low back pain (principal); M51.36 Other intervertebral disc degeneration, lumbar region
CPT/HCPCS: 72110

== ENCOUNTER 2023-02-05 02:54 | Outpatient (CLI) | payer MEDICAID, SELFPAY ==
[2023-02-05 16:37] LABS: Abs Immature Grans 0.04 10^3/uL (0.0-0.06); Absolute Basophil Count 0.05 10^3/uL (0.0-0.2); Absolute Eosinophil Count 0.13 10^3/uL (0.0-0.7); Absolute Lymphocyte Count 3.58 10^3/uL (1.2-3.4); Absolute Monocyte Count 0.68 10^3/uL (0.1-0.8); Absolute Neutrophil Count 6.26 10^3/uL (1.2-6.7); Basophils % 0.5; Eosinophils % 1.2; HCT 45.7 % (40.0-50.0); HGB 15.5 g/dL (13.5-17.5); Immature Grans % 0.4; Lymphocytes % 33.3; MCH 28.8 pg (27.0-33.0); MCHC 33.9 % (32.0-36.0); MCV 85 fL (80-95); MPV 9.1 fL (8.0-11.0); Monocytes % 6.3; Neutrophils % 58.3; Platelet Count 273 10^3/uL (130-400); RBC 5.38 10^6/uL (4.36-5.78); RDW 12.1 % (11.8-14.1); WBC 10.74 10^3/uL (4.4-10.8)
[2023-02-05 17:04] LABS: ALT 47 U/L (16-63); AST 21 U/L (15-37); Albumin 3.9 g/dL (3.4-5.0); Alkaline Phosphatase 53 U/L (46-116); Anion Gap 7.3 mmol/L (3-11); BUN 17 mg/dL (7-18); Bilirubin, Total 0.4 mg/dL (0.2-1.0); CO2 29.7 mmol/L (21.0-32.0); CREATININE 1.1 mg/dL (0.70-1.30); Calcium 9.4 mg/dL (8.5-10.1); Chloride 101 mmol/L (98-107); Glucose 104 mg/dL (74-106); Potassium 3.6 mmol/L (3.5-5.1); Sodium 138 mmol/L (136-145); Total Protein 7.7 g/dL (6.4-8.2)
== END 2023-02-05 02:55 | disposition home or self-care (01) ==
PROVIDERS: PCP Family Medicine; Visit Provider Family Medicine
DX: I10 Essential (primary) hypertension (principal); Z00.00 Encounter for general adult medical examination without abnormal findings; F39 Unspecified mood [affective] disorder
CPT/HCPCS: 36415; 80053; 85025

== ENCOUNTER 2024-03-28 07:59 | Outpatient (CLI) | payer MEDICAID, SELFPAY ==
--- NOTE | 2024-03-28 11:30 | RT.EKG_ITS ---
APPROVED REPORT Exam: Resting ECG Reason for Exam: LVH Patient Location: O HR:108 bpm ECG Measurements Heart Rate 108 AXIS MI 152 P 48 QRSd 92 QRS 34 QT 330 T 45 QTc 443 Conclusion Sinus tachycardia...rate> 99 Otherwise normal ECG
== END 2024-03-28 08:00 | disposition home or self-care (01) ==
PROVIDERS: PCP Family Medicine; Visit Provider Internal Medicine Cardiovascular Disease
DX: I51.7 Cardiomegaly (principal)
CPT/HCPCS: 93010

== ENCOUNTER 2024-09-22 17:18 | Outpatient (REF) | payer MEDICAID, SELFPAY ==
[2024-09-22 16:38] LABS: ALT 47 U/L (16-63); AST 21 U/L (15-37); Albumin 4.2 g/dL (3.4-5.0); Alkaline Phosphatase 61 U/L (46-116); Anion Gap 10.3 mmol/L (3-11); BUN 20 mg/dL (7-18); Bilirubin, Total 0.6 mg/dL (0.2-1.0); CO2 26.7 mmol/L (21.0-32.0); Calculated LDL 148 mg/dL (<100); Chloride 102 mmol/L (98-107); Cholesterol 229 mg/dL (<200); Estimated GFR 101.28 (mL/min/1.73m2); Glucose 102 mg/dL (74-106); HDL Cholesterol 28 mg/dL (>or=40); Potassium 4.4 mmol/L (3.5-5.1); Sodium 139 mmol/L (136-145); Total Protein 7.4 g/dL (6.4-8.2); Triglyceride 268 mg/dL (<150)
== END 2024-09-22 17:19 | disposition home or self-care (01) ==
LOC: NCHCN 17:18
PROVIDERS: PCP Family Medicine; Visit Provider Family Medicine
DX: I10 Essential (primary) hypertension (principal); E66.9 Obesity, unspecified
CPT/HCPCS: 80053; 80061; 83036